=== PATIENT | female | born 1995 | race Caucasian/White ===

== ENCOUNTER 2017-11-13 16:29 | Emergency (ER) | payer OTHER ==
[2017-11-13 16:40] VITALS: BP 100/54
[2017-11-13] MEDS ORDERED: Oseltamivir CAP* 75 MG CAP PO ONE (17:03)
--- NOTE | 2017-11-22 05:38 | UC ---
Atif Horne Natalie, scribed for Ruddy Reed MD on 11/13/17 at 1705 . Respiratory Complaint HPI - HPI Summary HPI Summary: The pt is a 22 y/o F presenting to [facility] c/o headache, fever, and cough starting yesterday. When the patient coughs, she has chest pain. The pt has treated her symptoms with Tylenol at 18:00 yesterday [employer] to some relief. Pt additionally c/ o nasal congestion, tickling in throat, weakness, fatigue, and appetite loss. - History of Current Complaint Chief Complaint: UCGeneralIllness Stated Complaint: FEVER,COUGH Hx Obtained From: Patient Onset/Duration: Lasting Days - starting yesterday, Still Present Severity Initially: Mild Severity Currently: Mild Pain Intensity: 0 Pain Scale Used: 0-10 Numeric Character: Cough: Nonproductive Aggravating Factors: Nothing Alleviating Factors: Other - Tylenol Associated Signs And Symptoms: Positive: Fever, Nasal Congestion - Allergies/Home Medications Allergies/Adverse Reactions: Allergies Allergy/AdvReac Type Severity Reaction Status Date / Time No Known Allergies Allergy Verified 09/19/14 13:59 Home Medications: Home Medications Escitalopram Oxalate [Lexapro 10 mg] 10 mg PO DAILY 11/13/17 [History Confirmed 11/13/17] clonazePAM TAB(*) [Klonopin TAB(*)] 0.5 mg PO Q6H PRN 11/13/17 [History Confirmed 11/13/17] PMH/Surg Hx/FS Hx/Imm Hx - Surgical History Surgical History: None - Family History Known Family History: Negative: Cardiac Disease, Hypertension, Diabetes - Social History Alcohol Use: Occasionally Substance Use Type: None Smoking Status (MU): Never Smoked Tobacco Review of Systems Constitutional: Fever ENT: Sore Throat, Nasal Discharge, Sinus Congestion Respiratory: Cough All Other Systems Reviewed And Are Negative: Yes Physical Exam Triage Information Reviewed: Yes Vital Signs: Initial Vital Signs Temp 97.9 F 11/13/17 16:36 Pulse 87 11/13/17 16:36 Resp 18 11/13/17 16:36 BP 100/54 11/13/17 16:36 Pulse Ox 98 11/13/17 16:36 Vital Signs Reviewed: Yes - Additional Comments Appearance: Well-appearing, Well-nourished Skin: Warm Eyes: Normal ENT: Normal Neck: Supple, nontender Respiratory: Clear to auscultation Cardiovascular: Normal Abdomen: Soft, nontender Bowel: Present Musculoskeletal: Normal, Strength/ROM Intact Neurological: Normal, A&Ox3 Psychiatric: Normal UC Diagnostic Evaluation - Laboratory O2 Sat by Pulse Oximetry: 98 Respiratory Course/Dx - Differential Dx/Diagnosis Provider Diagnoses: influenza Discharge - Discharge Plan Condition: Stable Disposition: HOME Prescriptions: Oseltamivir CAP* [Tamiflu CAP*] 75 mg PO BID #14 cap Patient Education Materials: Influenza (ED) Forms: *Work Release Referrals: No Primary Care Phys,NOPCP [Primary Care Provider] - Additional Instructions: PLEASE TAKE MEDICATIONS DIRECTED PLEASE KEEP YOURSELF WELL HYDRATED WITH SMALL AMOUNTS OF FLUID MORE FREQUENTLY THROUGHOUT THE DAY PLEASE SEEK MEDICAL ATTENTION IMMEDIATELY IF YOU HAVE ANY WORSENING OR CONCERNING SYMPTOMS PLEASE MAKE AN APPOINTMENT TO BE SEEN BY YOUR PRIMARY CARE DOCTOR WITHIN 1 WEEK The documentation as recorded by the Atif meyers Natalie accurately reflects the service I personally performed and the decisions made by me, Ruddy Reed MD.
== END 2017-11-13 17:15 | disposition home or self-care (01) ==
LOC: UCEAST 16:29
DX: J11.1 Influenza due to unidentified influenza virus with other respiratory manifestations (principal)
CPT/HCPCS: 87502; 99202; A9270-GY; G0463

== ENCOUNTER 2018-02-18 20:24 | Emergency (ER) | payer OTHER ==
[2018-02-18 20:41] VITALS: BP 100/64
--- NOTE | 2018-02-18 21:07 | UC ---
Complaint Male HPI - HPI Summary HPI Summary: Patient states she wants to have general STD testing, specifically Gono/CH and HIV due to history of unprotected sex with last 3 partners. Denies any symptoms other than possible intermittent mild itching for indeterminate period of time that existed prior to episodes of unprotected sex. Denies urinary symptoms, abdominal or pelvic pain, low back pain, fever, N/V, vaginal discharge/pain. Medical history is none. - History of Current Complaint Chief Complaint: UCGU Stated Complaint: PERSONAL Time Seen by Provider: 02/18/18 20:39 Hx Obtained From: Patient Severity Currently: None Pain Intensity: 0 Pain Scale Used: 0-10 Numeric - Allergies/Home Medications Allergies/Adverse Reactions: Allergies Allergy/AdvReac Type Severity Reaction Status Date / Time No Known Allergies Allergy Verified 02/18/18 20:41 Home Medications: Home Medications Ferrous Gluconate TAB* [Fergon TAB*] 325 mg PO DAILY 02/18/18 [History Confirmed 02/18/18] PMH/Surg Hx/FS Hx/Imm Hx - Surgical History Surgical History: None Surgery Procedure, Year, and Place: denies - Family History Known Family History: Negative: Cardiac Disease, Hypertension, Diabetes - Social History Alcohol Use: Occasionally Substance Use Type: Marijuana Smoking Status (MU): Never Smoked Tobacco Review of Systems Constitutional: Negative Skin: Negative Eyes: Negative Respiratory: Negative Cardiovascular: Negative Gastrointestinal: Negative Genitourinary: Negative Motor: Negative Neurovascular: Negative Musculoskeletal: Negative Neurological: Negative Psychological: Negative Is Patient Immunocompromised?: No All Other Systems Reviewed And Are Negative: Yes Physical Exam Triage Information Reviewed: Yes Appearance: Well-Appearing Vital Signs: Initial Vital Signs Temp 98.3 F 02/18/18 20:36 Pulse 64 02/18/18 20:36 Resp 18 02/18/18 20:36 BP 100/64 02/18/18 20:36 Pulse Ox 100 02/18/18 20:36 Vital Signs Reviewed: Yes Eye Exam: Normal Neck exam: Normal Respiratory Exam: Normal Cardiovascular Exam: Normal Abdominal Exam: Normal Musculoskeletal Exam: Normal Neurological Exam: Normal Psychological Exam: Normal Skin Exam: Normal Complaint Male Course/Dx - Course Course Of Treatment: Refused pelvic exam. Vital signs within normal limits. Asymptomatic. No treatment at this time. Will await lab results. - Differential Dx/Diagnosis Provider Diagnoses: std testing Discharge - Sign-Out/Discharge Documenting (check all that apply): Discharge/Admit/Transfer - Discharge Plan Condition: Stable Disposition: HOME Patient Education Materials: Pelvic Inflammatory Disease (ED), Chlamydia (ED), Gonorrhea (ED), HIV Transmission (ED), HIV Infection (ED) Referrals: No Primary Care Phys,NOPCP [Primary Care Provider] - - Billing Disposition and Condition Condition: STABLE Disposition: HOME
== END 2018-02-18 21:20 | disposition home or self-care (01) ==
LOC: UCEAST 20:24
DX: Z11.3 Encounter for screening for infections with a predominantly sexual mode of transmission (principal); Z11.4 Encounter for screening for human immunodeficiency virus [HIV]
CPT/HCPCS: 36415; 86703; 87491; 87591; 99211; G0463

== ENCOUNTER 2018-05-23 20:04 | Emergency (ER) | payer OTHER ==
[2018-05-23 20:35] VITALS: BP 109/71
--- NOTE | 2018-05-23 21:10 | UC ---
Throat Pain/Nasal Patrick HPI - HPI Summary HPI Summary: 22 yo female presents with a sore throat. She is visiting friends for the weekend and is from [place]. She tells me that on 05/18 she had a bad headache. On 05/19 developed a fever of 101, but had no symptoms. 05/20 had a fever of 103F and had some body aches. She saw her PCP that day and was tested for mono and lyme. She received the results of those tests today and says they were both negative. Last night she developed a sore throat that has persisted through today. Has not had a fever since 05/20, but does have some mild anterior and posterior neck pain. Denies fever, chills, sinus symptoms, cough, SOB, chest pain, headache, or rash. - History of Current Complaint Chief Complaint: UCGeneralIllness Stated Complaint: SWOLLEN TONSILS,NECK STIFFNESS,CHILLS Time Seen by Provider: 05/23/18 21:09 Hx Obtained From: Patient Hx Last Menstrual Period: [id number] Onset/Duration: Gradual Onset Severity: Mild Pain Intensity: 4 Pain Scale Used: 0-10 Numeric - Allergies/Home Medications Allergies/Adverse Reactions: Allergies Allergy/AdvReac Type Severity Reaction Status Date / Time No Known Allergies Allergy Verified 05/23/18 20:35 PMH/Surg Hx/FS Hx/Imm Hx Psychological History: Anxiety, Depression - Surgical History Surgical History: None Surgery Procedure, Year, and Place: denies - Family History Known Family History: Negative: Cardiac Disease, Hypertension, Diabetes - Social History Occupation: Student Lives: With Family Alcohol Use: Weekly Substance Use Type: Marijuana Smoking Status (MU): Never Smoked Tobacco Review of Systems Constitutional: Negative Skin: Negative Eyes: Negative ENT: Sore Throat Respiratory: Negative Cardiovascular: Negative Gastrointestinal: Negative Musculoskeletal: Negative Neurological: Negative Psychological: Negative All Other Systems Reviewed And Are Negative: Yes Physical Exam - Summary Physical Exam Summary: GENERAL: NAD. WDWN. No pain distress. SKIN: No rashes, sores, lesions, or open wounds. HEENT: Head: AT/NC Eyes: Conjunctiva clear without inflammation or discharge. Ears: Hearing grossly normal. TMs intact, no bulging, erythema, or edema. Nose: Nasal mucosa pink and moist. NTTP maxillary and frontal sinus. Throat: Posterior oropharynx moderate erythema and 3+ tonsillar enlargement on left. Mild exudates on left tonsil. Uvula midline. No hoarse voice or muffled voice. NECK: Supple. Moderate TTP with mild tonsillar LAD CHEST: CTAB. No r/r/w. No accessory muscle use. Breathing comfortably and in no distress. CV: RRR. Without m/r/g. Pulses intact. Cap refill <2seconds NEURO: Alert. CN II-XII grossly intact. PSYCH: Age appropriate behavior. Triage Information Reviewed: Yes Vital Signs: Initial Vital Signs Temp 99.4 F 05/23/18 20:29 Pulse 85 05/23/18 20:29 Resp 16 05/23/18 20:29 BP 109/71 05/23/18 20:29 Pulse Ox 100 05/23/18 20:29 Vital Signs Reviewed: Yes Throat Pain/Nasal Course/Dx - Course Course Of Treatment: Suspect strep vs pharyngitis. Will treat with amoxicillin and prednisone - Differential Dx/Diagnosis Provider Diagnoses: Pharyngitis Discharge - Sign-Out/Discharge Documenting (check all that apply): Patient Departure - Discharge Plan Condition: Stable Disposition: HOME Prescriptions: Amoxicillin PO (*) [Amoxicillin 500 MG CAP*] 500 mg PO Q12H #20 cap predniSONE TAB* [Deltasone 20 MG TAB*] 60 mg PO DAILY #9 tab Patient Education Materials: Pharyngitis (ED) Referrals: No Primary Care Phys,NOPCP [Primary Care Provider] - Additional Instructions: If you develop a fever, shortness of breath, chest pain, new or worsening symptoms - please call your PCP or go to the ED. - Billing Disposition and Condition Condition: STABLE Disposition: Home
[2018-05-23] MEDS ORDERED: Amoxicillin PO (*) 500 MG CAP PO ONE (21:18)
== END 2018-05-23 21:30 | disposition home or self-care (01) ==
LOC: UCEAST 20:04
DX: J02.9 Acute pharyngitis, unspecified (principal)
CPT/HCPCS: 99212; A9270-GY; G0463